=== PATIENT | female | born 2000 | race Caucasian/White ===

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

== ENCOUNTER 2020-02-27 17:11 | Outpatient (REF) | payer MEDICAID, SELFPAY ==
[2020-02-27 22:58] LABS: Abs Immature Grans 0.01 k/cumm (0.0-0.09); Absolute Basophil Count 0.02 k/cumm (0.0-0.2); Absolute Lymphocyte Count 2.91 k/cumm (1.2-3.4); Absolute Monocyte Count 0.53 k/cumm (0.11-0.7); Absolute Neutrophil Count 4.26 k/cumm (1.2-6.7); Basophils % 0.3; Eosinophils % 1.3; HCT 37.6 % (36.0-46.0); HGB 12.4 g/dL (12.0-15.5); Immature Grans % 0.1 %; Lymphocytes % 37.2; Mean Corpuscular Hemoglobin 29.2 pg (27.0-33.0); Mean Corpuscular Volume 88.5 fL (80-95); Mean Platelet Volume 10.8 fL (8.0-11.0); Monocytes % 6.8; Neutrophils % 54.3; Platelet Count 287 x1000/uL (130-400); RBC 4.25 m/cumm (4.00-5.20); RBC Distribution Width 13.2 % (11.7-14.6); White Blood Cell Count 7.83 k/cumm (4.4-10.8)
[2020-02-27 23:14] LABS: ALT 26 U/L (14-59); AST 21 U/L (15-37); Albumin 4.4 g/dL (3.4-5.0); Alkaline Phosphatase 79 U/L (46-116); Anion Gap 12.7 mmol/L (3-11); BUN 12 mg/dL (7-18); Bilirubin, Total 0.6 mg/dL (0.2-1.0); CO2 24.3 mmol/L (21.0-32.0); Calcium 9.6 mg/dL (8.5-10.1); Chloride 102 mmol/L (98-107); Glucose 89 mg/dL (74-106); Potassium 3.8 mmol/L (3.5-5.1); Sodium 139 mmol/L (136-145); Total Protein 8.1 g/dL (6.4-8.2)
[2020-02-27 23:15] LABS: HCG Quant, Pregnancy < 1 mIU/mL (1-3)
[2020-02-27 23:53] LABS: Hemoglobin A1C 5.3 % (3.8-5.6)
== END 2020-02-27 17:31 ==
LOC: NCHCN 17:11
PROVIDERS: PCP Nurse Practitioner Family; Visit Provider Nurse Practitioner Community Health
DX: R40.20 Unspecified coma (principal); Z13.1 Encounter for screening for diabetes mellitus
CPT/HCPCS: 80053; 83036; 84702; 85025

== ENCOUNTER 2020-03-05 13:59 | Outpatient (REF) | payer MEDICAID, SELFPAY ==
[2020-03-05 21:33] LABS: Anion Gap 9.7 mmol/L (3-11); BUN 11 mg/dL (7-18); CO2 26.3 mmol/L (21.0-32.0); CREATININE 0.71 mg/dL (0.55-1.02); Calcium 9.5 mg/dL (8.5-10.1); Chloride 103 mmol/L (98-107); Glucose 109 mg/dL (74-106); Potassium 3.6 mmol/L (3.5-5.1); Sodium 139 mmol/L (136-145)
== END 2020-03-05 14:19 ==
LOC: NCHCN 13:59
PROVIDERS: PCP Nurse Practitioner Family; Visit Provider Nurse Practitioner Family
DX: R40.20 Unspecified coma (principal); R63.4 Abnormal weight loss
CPT/HCPCS: 80048

== ENCOUNTER 2022-03-17 15:26 | Outpatient (REF) | payer MEDICAID, SELFPAY ==
--- NOTE | 2022-03-17 14:45 | PAPFT_PTH ---
PATIENT: Ifeoma Meredith LOC: [facility] U#:[id number] AGE/SX: 22/F ROOM: RE03/17/[address]: Grace Momin : 2000 BED: DIS: 03/17/2022 SPEC #: [id number] RECD: 03/18/22 12:48 STATUS: DEBI PANIAGUA #: [id number] OBEY: 03/17/22 14:[address]: Grace Goff DEPT: [facility] Cytology RECD BY: Lavonne Jane ENTERED: 03/18/22 12:48 SP TYPE: PAPFT OTHR DR: Carolynn Otero Tissues: 1 - CX/ENDOCX FOR PAP SMEARS Procedures: PAP THIN PREP/[facility] Screening Comments: [id number]
== END 2022-03-17 15:27 | disposition home or self-care (01) ==
LOC: NCHCN 15:26
PROVIDERS: PCP Nurse Practitioner Family; Visit Provider Nurse Practitioner Family
DX: Z00.00 Encounter for general adult medical examination without abnormal findings (principal); Z12.4 Encounter for screening for malignant neoplasm of cervix
CPT/HCPCS: 88142